=== PATIENT | male | born 1935 ===

== ENCOUNTER 2025-09-17 10:29 | Emergency (ER) | payer MEDICARE, SELFPAY ==
--- NOTE | ~2025-09-17 | XR_ITS ---
EXAMINATION: XR CHEST CLINICAL INFORMATION: cp COMPARISON: None available. TECHNIQUE: 2 views of the chest were obtained. FINDINGS: The cardiomediastinal silhouette is within normal limits. The lungs are well expanded. There is no focal consolidation, edema, or effusion. No pneumothorax. Degeneration in the visualized spine. XR/XR chest 2V IMPRESSION: No radiographic evidence of acute cardiopulmonary process Electronically signed by: John Rodriguez MD 09/17/2025 01:09 PM ONIEL
[2025-09-17 10:34] VITALS: BP 154/85; PULSE 65; RESP 18; TEMP 36.6; O2SAT 98; BMI 24.6
--- NOTE | 2025-09-17 10:38 | ECG_ITS ---
Test Reason : lt arm tinglimg Blood Pressure : */* mmHG Vent. Rate : 56 BPM Atrial Rate : 56 BPM P-R Int : 160 ms QRS Dur : 116 ms QT Int : 434 ms P-R-T Axes : 54 -53 -19 degrees QTcB Int : 418 ms Sinus bradycardia Right bundle branch block Left anterior fascicular block Bifascicular block Abnormal ECG No previous ECGs available Referred By: Alonso Garcia Electronically Signed By: Cody [place]
--- NOTE | 2025-09-17 10:39 | ED.GENADULT ---
[facility] - General Adult General Chief complaint: General Medical Stated complaint: L Hand/ Arm Numbness Time Seen by Provider: 09/17/25 12:02 Source: patient Mode of arrival: ambulatory Limitations: no limitations History of Present Illness ED Provider: Dr. Avalos [facility] narrative: This is a 89-year-old male presented hospital today for evaluation of left arm numbness. Patient stated that he woke up at 02:00 today noticed that his left arm is asleep. Patient stated that this sensation has improved. Patient stated that his pajama was tight around his armpit overnight he had to constantly readjusted. No specific distribution of this paresthesia. Related Data Allergies Allergy/AdvReac Type Severity Reaction Status Date / Time No Known Allergies Allergy Verified 09/17/25 10:38 Review of Systems Review of Systems: Pertinent review of systems as mentioned in HPI. All other system otherwise negative. [facility]LY [facility], LATER [facility] Past Medical History [facility], LAT[facility] Narrative: None Physical Exam ED Exam Exam: General: Pleasant, no distress, interacting appropriately Head: Normacephalic, atraumatic ENT: oral mucosa moist, neck supple, no tracheal deviation Cardiovascular: regular rate, regular rhythm, no murmurs, rubbing, gallops Respiratory: CTAB, no wheeze, rales, rhonchi Extremities: Left upper extremity does have a pulse. Sensation is intact. Neurological: Awake and alert, no facial droop noted, no extremity weakness, no signs of ataxia, speech is clear, vision intact Skin: Warm and dry Psychiatric: Appropriate mood and thoughts Vital Signs: Vital Signs - 24 hr 09/17/25 10:34 09/17/25 14:00 09/17/25 15:51 Temperature 98 F 98.1 F 98.1 F Pulse Rate 65 52 62 Respiratory Rate 18 16 17 Blood Pressure 154/85 H 122/68 120/66 Pulse Oximetry 98 96 97 Oxygen Delivery Method Room Air Room Air Room Air BMI result Body Mass Index 24.6 NIH Stroke Scale Internal: Initial- Upon Arrival Level of Consciousness: Alert Level of Consciousness Questions: Answers both questions correctly Level of Consciousness Commands: Performs both tasks correctly Best Gaze: Normal Visual: No visual loss Facial Palsy: Normal Motor Arm (Right): No drift Motor Arm (Left): No drift Motor Leg (Right): No drift Motor Leg (Left): No drift Limb Ataxia: Absent Sensory: Normal Best Language: No aphasia Dysarthia: Normal Extinction and Inattention: No abnormality Score: 0 Course Course Course Narrative: RME: 89-year-old male presents to the ED for left arm tingling/numbness with/chest tightness since this morning. Patient states tingling numb in getting better. Patient denies any slurred speech, facial droop, paralysis of lower extremities, or loss of vision. NIH score is 0. Labs EKG ordered Medications Administered Discontinued Medications Generic Name Dose Route Start Last Admin Trade Name Tiffanie PRN Reason Stop Dose Admin Aspirin 324 mg 09/17/25 12:13 09/17/25 12:37 Aspirin 81 Mg Tab.Chew PO 09/17/25 12:14 324 mg ONCE ONE Administration Nitroglycerin 0.4 mg 09/17/25 12:13 09/17/25 12:38 Nitroglycerin 0.4 Mg Tab.Subl SUBLINGUAL 09/17/25 12:14 0.4 mg ONCE ONE Administration Medical Decision Making Medical Decision Making [facility] Narrative: 89-year-old male presenting to ER today for evaluation of left arm numbness. Review patient's EKG. Appears to be right bundle branch block. Initial troponin is negative. Second troponin is negative as well. Patient stated that his paresthesia is improving. I suspect this may be secondary to compression of his axilla that is causing the paresthesia down his left arm. Chest x-ray was clear. No significant abnormality on lab work at this time. Patient will be discharged home. I did encourage the patient to follow up with primary care doctor if he has intermittent chest pain for a stress test. Return precautions provided the patient as well for chest pain. Differential Diagnosis Differential Diagnoses: The differential diagnosis associated with the presentation includes Ischemic left limb, ACS, STEMI, paresthesia, radial nerve palsy Lab Data [facility] Lab Attestation statement: I reviewed the patient's lab results. 09/17/25 10:53 09/17/25 10:53 Labs: Lab Results 09/17/25 09/17/25 Range/Units 10:53 13:14 WBC 5.8 (4.8-10.8) X10*3/uL RBC 4.92 (4.60-5.80) X10*6/uL Hgb 12.8 L (14.0-18.0) g/dl Hct 39.9 L (42.0-52.0) % MCV 81.1 (80.0-98.0) fL MCH 26.0 L (27.0-33.0) pg MCHC 32.1 (31.0-36.0) g/dl RDW 15.9 (11.0-16.0) % Plt Count 206 (160-400) X10*3/uL MPV 9.3 L (9.4-12.4) fL Immature Gran % (Auto) 0.3 (0.0-0.4) % Neut % (Auto) 61.4 (45-73) % Lymph % (Auto) 26.6 (20-40) % Burt % (Auto) 9.5 (2-11) % Eos % (Auto) 1.0 (0-4) % Baso % (Auto) 1.2 (0-2) % Lymph # (Auto) 1.5 (1.2-4.9) X10*3/uL Burt # (Auto) 0.6 (0.1-1.2) X10*3/uL Eos # (Auto) 0.1 (0.0-0.4) X10*3/uL Baso # (Auto) 0.1 (0.0-0.2) X10*3/uL Abs Immat Gran (auto) 0.02 (0.00-0.03) X10*3/uL Absolute Neuts (auto) 3.6 (2.0-8.3) x10*3/uL Absolute Nucleated RBC 0.000 (0.0-0.012) X10*3/uL Nucleated RBC % (auto) 0.0 (0.0-0.2) /100WBC PT 12.2 (11.2-13.5) SEC INR 1.0 (0.9-1.1) APTT 32.9 (26.7-34.1) SEC Sodium 138 (135-145) mmol/L Potassium 4.1 (3.3-5.1) mmol/L Chloride 104 (96-108) mmol/L Carbon Dioxide 27 (22-29) mmol/L Anion Gap 11 L (12-20) BUN 18 H (9-16) mg/dL Creatinine 1.00 (0.5-1.4) mg/dL Estim Creat Clear Calc 43.5 Estimated GFR > 60 Random Glucose 92 (60-115) mg/dL Calcium 9.2 (8.4-10.2) mg/dL Total Bilirubin 0.6 (0.0-1.0) mg/dL AST 31 (5-37) U/L ALT 25 (0-40) U/L Alkaline Phosphatase 109 (39-117) U/L Troponin I High Sens 5.3 4.6 (<3.5-35.0) ng/L Total Protein 7.7 (6.5-8.0) g/dL Albumin 4.4 (3.5-5.0) g/dL Independent Interpretation I performed an independent interpretation of an: EKG and Plain X-Ray Radiology Impression Discussion of test interpretation with radiology: I have reviewed the radiologist's reading. Discharge Plan Discharge Clinical Impression: Arm paresthesia, left Patient Disposition: Home, Self-Care Instructions: Paresthesia (ED) Additional Instructions: I suspect your paresthesia of left arm is from your tight pajamas. Wear loose clothing . IF there are any concerns of chest pain it may be a good idea to ask primary care doctor about Stress test. Interventions: ED Discharge Assessment Last Done: 09/17/25 15:51 Discharge Date/Time: 09/17/25 15:51 Print Language: [place]
[2025-09-17 10:57] LABS: MANUAL DIFF FLAG NO
[2025-09-17 10:59] LABS: Hematocrit 39.9 % (42.0-52.0); Hemoglobin 12.8 g/dl (14.0-18.0); Imm Gran Abs Auto 0.02 X10*3/uL (0.00-0.03); Imm Gran Pct Auto 0.3 % (0.0-0.4); Lymphocytes Absolute Auto 1.5 X10*3/uL (1.2-4.9); Mean Corpuscular HGB Conc 32.1 g/dl (31.0-36.0); Mean Corpuscular Hemoglobin 26.0 pg (27.0-33.0); Mean Corpuscular Volume 81.1 fL (80.0-98.0); NRBC Abs Auto 0.000 X10*3/uL (0.0-0.012); NRBC Pct Auto 0.0 /100WBC (0.0-0.2); Platelet Count 206 X10*3/uL (160-400); Red Blood Count 4.92 X10*6/uL (4.60-5.80); White Blood Count 5.8 X10*3/uL (4.8-10.8)
[2025-09-17 11:05] LABS: INTERNATIONAL NORM RATIO 1.0 (0.9-1.1); Prothrombin Time 12.2 SEC (11.2-13.5)
[2025-09-17 11:08] LABS: Partial Thromboplastin Time 32.9 SEC (26.7-34.1)
[2025-09-17 11:14] LABS: Alanine Aminotransferase 25 U/L (0-40); Albumin Level 4.4 g/dL (3.5-5.0); Alkaline Phosphatase 109 U/L (39-117); Anion Gap 11 (12-20); Aspartate Amino Transferase 31 U/L (5-37); Blood Urea Nitrogen 18 mg/dL (9-16); Calcium 9.2 mg/dL (8.4-10.2); Carbon Dioxide 27 mmol/L (22-29); Chloride 104 mmol/L (96-108); Creatinine Clr Calc Pharmacy 43.5; Estimated Glomerular Filt Rate > 60; Potassium 4.1 mmol/L (3.3-5.1); Sodium 138 mmol/L (135-145); Total Protein 7.7 g/dL (6.5-8.0)
[2025-09-17 11:18] LABS: Troponin-I High Sensitivity 5.3 ng/L (<3.5-35.0)
--- NOTE | 2025-09-17 12:29 | ECG_ITS ---
Test Reason : repeat (CP) Blood Pressure : */* mmHG Vent. Rate : 56 BPM Atrial Rate : 56 BPM P-R Int : 144 ms QRS Dur : 116 ms QT Int : 454 ms P-R-T Axes : 66 -47 13 degrees QTcB Int : 438 ms Sinus bradycardia Right bundle branch block Left anterior fascicular block Bifascicular block Abnormal ECG When compared with ECG of 17-Sep-2025 10:46, No significant change was found Referred By: Lyudmila Avalos Electronically Signed By: Cody [place]
[2025-09-17 13:44] LABS: Troponin-I High Sensitivity 4.6 ng/L (<3.5-35.0)
[2025-09-17 14:00] VITALS: BP 122/68; PULSE 52; RESP 16; TEMP 36.7; O2SAT 96
--- OUTSIDE RECORDS SUMMARY | 2025-09-17 15:00 | XMS_ITS | Clinical Summary ---
Author Organization [facility] Address [address] [address] Phone Care Team Providers Care Director Client Services Name Role Phone Fabián Castanon MD Primary Care Provide r Allergies No known active allergies Medications amLODIPine (NORVASC) 10 MG tablet Take 10 mg by mouth. 10/31/2016 Active aspirin 81 MG EC tablet Take by mouth. 03/06/2013 Active citalopram (CELEXA) 10 MG tablet Take 1 tablet by mouth daily 10/31/2016 Active cyanocobalamin, vitamin B-12, 500 MCG tablet Take 500 mcg by mouth. 05/14/2015 Active diclofenac sodium (VOLTAREN) 0.1 % ophthalmic solution Instill 1 drop into affected eye(s) four times daily Start 1 day before and continue after surgery 01/22/2017 Active fluticasone propionate (FLONASE) 50 mcg/actuation nasal spray Apply 1-2 sprays to each nostril daily ; dispense OTC if lowest cost for patient 11/26/2015 Active loratadine (CLARITIN) 10 mg tablet Take by mouth. 03/04/2013 Active ofloxacin (OCUFLOX) 0.3 % ophthalmic solution Instill 1 drop into affected eye(s) four times daily start 1 day before and continue after surgery 01/22/2017 Active prednisoLONE acetate (PRED FORTE) 1 % ophthalmic suspension Apply 1 drop to affected eye(s) four times daily After surgery 01/22/2017 Active sildenafil (REVATIO) 20 mg tablet Take up to 5 tablets, or as directed, one hour before sex. Best taken on empty stomach or 2 hours after meal. 10/28/2015 Active tamsulosin (FLOMAX) 0.4 mg Cap Take 0.4 mg by mouth. 10/31/2016 Active ELIQUIS 2.5 mg 04/21/2022 Acti ve neomycin-polymy azar B-dexamethasone (MAXITROL) 3.5 mg/g-10,000 unit/g-0.1 % Oint 06/18/2022 Active Active Problems Problem Noted Date Diagnosed Date Basal cell carcinoma (BCC) of right upper extrem ity 06/27/2022 Overview (06/27/2022): right antecubital fossa FIBROEPITHELIOMA OF PINKUS, THE EXAMINED INKED MARGINS ARE NEGATIVE. Hypertensive disorder 03/18/2019 BPH (benign prostatic hyperplasia) 03/18/2019 Major depressive disorder 03/18/2019 OA (osteoarthritis) 03/18/2019 Spinal stenosis 03/18/2019 Social History Tobacco Use Types Packs/Day Years Used Date Smoking Tobacco: Never Smokeless Tobacco: Never Alcohol Use Standard Drinks/Week Comments Yes 1 (1 standard drink = 0.6 oz pur e alcohol) once a week Education Answer Date Recorded Are you interested in more education? Not on adam e 03/18/2023 Are you concerned about learning? Not on file 03/18/2023 No 03/18/2023 No 03/18/2023 Digital Access Answer Date Recorded No 04/09/2023 No 04/09/2023 No 04/09/2023 Reliable internet access at home? Not on file 04/09/2023 Device with a working camera? Not on file Sex and Gender Information Value Date Recorded Sex Assigned at Not on file Legal Sex Male 5:52 PM EST Gender Identity Not on file Sexual Orientation Not on file Last Filed Vital Signs Vital Sign Reading Time Taken Comments Blood Pressure 119/69 03/18/2019 9:47 AM EDT Pulse 58 03/18/2019 9:47 AM EDT Temperature 36.2 C (97.2 F) 03/18/2019 9:30 AM EDT Respiratory Rate 19 03/18/2019 9:47 AM EDT Oxygen Saturation 97% 03/18/2019 9:30 AM EDT Inhaled Oxygen Concentration - - Weight 67.6 kg (149 lb) 03/18/2019 8:34 AM EDT Height 167.6 cm (5' 6 ) 03/18/2019 8:34 AM EDT Body Mass Index 24.05 03/18/2019 8:34 AM EDT Plan of Treatment Health Maintenance Due Date Last Done Comments DEPRESSION SCREENING 1948 RSV VACCINE (1 - 1-dose 75+ series) 2011 Adult Td,Tdap Booster 07/27/2022 07/27/2012, 008 CREATININE LEVEL 06/01/2023 06/01/2022, 02/14/2019 INFLUENZA VACCINE (#1) 2025 , 07/28/2020, 08/26/2019, Additional history exists COVID-19 VACCINE (2024- season) 2025 03/16/2022, 08/30/2021, 12/30/2020, Additional history exists PNEUMOCOCCAL VACCINES (50+ years) Completed 12/08/2017, 08/12/2016, 09/18/2002 ZOSTER VACCINES Completed 06/01/2022, 04/14, 10/23/2012 HEPATITIS A VACCINES Aged Out No long er eligible based on patient's age to complete this topic HIB VACCINES Aged Out No longer eligi ble based on patient's age to complete this topic MENINGOCOCCAL VACCINES (ACWY) Aged Out No longer eligible based on patient's age to complete this topic MENINGOCOCCAL VACCINES (B) Aged Out N o longer eligible based on patient's age to complete this topic Medical Devices Implanted Type Area Belt Loop Cutter Device Identifier Shelf Expiration Date Model / Serial / Lot Iol Tecnis Zcb00 22.5d - [id number] Implanted:Qty: 1 on 01/30/2017 by Sandrine Ann MD at [facility] 05/06/2020 / [id number] / Lens Intraocular Tecnis Zcb00 22.0d - [id number] Implanted:Qty: 1 on 03/18/2019 by Sandrine Ann MD at [facility] A M O SALES 06/13/2022 ZCB00 22.0D / [id number] / [place] [address] [facility] Member Subscriber Plan / Payer (Ef fective 2001-Present) Name:Lencho Faustin Relation to Subscriber:Spouse Name:CHALO FAUSTIN Date of :1935 (Home) Address: [address] [place] Payer ID:[id number] (NAIC) Type:O Address: [facility] [id number] [place] [address] [facility] POS Member Subscriber Plan / Payer (Ef fective 2001-Present) Name:Lencho Faustin Relation to Subscriber:Spouse Name:ROXIECHAVOCHALO Date of :1935 (Home) Address: [address] [place] Payer ID:[id number] (NAIC) Type:O Address: [id number] MEDICARE REPLACEMENT [place] [id number] [facility] POS Member Subscriber Plan / Payer (Ef fective 2001-Present) Name:Lencho Faustin Relation to Subscriber:Spouse Name:CHALO FAUSTIN Date of :1935 (Home) Address: [address] [place], [place] [address] [address] Payer ID:[id number] (NAIC) Type:O Address: [phone] MEDICARE REPLACEMENT [place] [id number] [facility] POS Member Subscriber Plan / Payer (Ef fective 2001-Present) Name:Lencho Faustin Relation to Subscriber:Spouse Name:CHALO FAUSTIN Date of :1935 (Home) Address: [place] [address] Payer ID:[id number] (NAIC) Type:O Address: [address] MEDICARE REPLACEMENT [facility] POS Member Subscriber Plan / Payer (Ef fective 2001-Present) Name:Lencho Faustin Relation to Subscriber:Spouse Name:CHALO FAUSTIN Date of :1935 (Home) Address: [place] [address] Payer ID:[id number] (NAIC) Type:O Address: [address] [place] [address] [facility] HMO POS [facility] [place]ARE [place] [address] [facility] HMO POS Member Subscriber Plan / Payer (Ef fective 2001-Present) Name:Lencho Faustin Relation to Subscriber:Spouse Name:CHALO FAUSTIN Date of :1935 (Home) Address: [place] [address] Payer ID:[id number] (NAIC) Type:HMO Address: [address] MEDICARE REPLACEMENT [facility] POS Member Subscriber Plan / Payer (Ef fective 2001-Present) Name:Lencho Faustin Relation to Subscriber:Spouse Name:CHALO FAUSTIN Date of :1935 (Home) Address: [place] [address] Payer ID:[id number] (NAIC) Type:O Address: [phone] MEDICARE REPLACEMENT [place] [phone] [facility] POS Member Subscriber Plan / Payer (Ef fective 2001-Present) Name:Lencho Faustin Relation to Subscriber:Spouse Name:CHALO FAUSTIN Date of :1935 (Home) Address: [place] [address] Payer ID:[id number] (NAIC) Type:O Address: [address] [place] [address] [facility] POS Member Subscriber Plan / Payer (Ef fective 2001-Present) Name:Lencho Faustin Relation to Subscriber:Spouse Name:CHALO FAUSTIN Date of :1935 (Home) Address: [place] [address] Payer ID:[id number] (NAIC) Type:O Address: [phone] MEDICARE REPLACEMENT [place] [phone] Advance Directives For more information, please contact: [phone] (9AM - 5PM [facility], Monday-Monday) * Full Code (Presumed) (Latest Code Status on File) Date Activated Date Inactivated Comments 03/18/2019 8:35 AM 03/19/2019 10:19 AM * Full Code (Presumed) Date Activated Date Inactivated Comments 01/30/2017 8:03 AM 01/30/2017 11:32 AM Care Teams Director Client Services Relationship Specialty Start Date End Date Fabián Castanon MD [address] [place] [address] [email or web address] PCP - General Internal Medicine 03/06/19 Additional Source Comments The information contained in this document represents components of the legal health record. It is not the complete legal health record.[facility]
--- OUTSIDE RECORDS SUMMARY | 2025-09-17 15:00 | XMS_ITS | Encounter Summary ---
Author Organization [facility] Address [address] [facility] [address] [place] [address] Phone Care Team Providers Care Flower Maker Name Role Phone Fabián Castanon MD Primary Care Provide r Encounter Details Date Type Department Care Team (Late st Contact Info) Description 03/18/2019 Procedure Pass [facility] DEPT [address] [place] [id number] Social History Tobacco Use Types Packs/Day Years Used Date Smoking Tobacco: Never Smokeless Tobacco: Never Alcohol Use Standard Drinks/Week Comments Yes 1 (1 standard drink = 0.6 oz pur e alcohol) once a week Sex and Gender Information Value Date Recorded Sex Assigned at Not on file Legal Sex Male 5:52 PM EST Gender Identity Not on file Sexual Orientation Not on file documented as of this encounter Plan of Treatment Not on file documented as of this encounter Visit Diagnoses Not on filedocumented in this encounter Care Teams Flower Maker Relationship Specialty Start Date End Date Fabián Castanon MD [address] [place] [address] [email or web address] PCP - General Internal Medicine 03/06/19 documented as of this encounter Additional Source Comments The information contained in this document represents components of the legal health record. It is not the complete legal health record.[facility]
--- OUTSIDE RECORDS SUMMARY | 2025-09-17 15:00 | XMS_ITS | Encounter Summary ---
Author Organization [facility] Address [address] [place] [address] Phone Care Team Providers Care Coverage Specialist Name Role Phone Jb Ruiz MD Primary Care Provider [phone] Fabián Castanon MD Primary Care Provide r Encounter Details Date Type Department Care Team (Late st Contact Info) Description 01/30/2017 Procedure Pass [facility] DEPT [address] [place] [id number] Social History Tobacco Use Types Packs/Day Years Used Date Smoking Tobacco: Never Alcohol Use Standard Drinks/Week Comments [...] on filedocumented in this encounter Care Teams Coverage Specialist Relationship Specialty Start Date End Date Jb Ruiz MD [address] [place] [id number] PCP - General Internal Medicine 01/13/17 03/05/19 Fabián Castanon MD [address] [place] [address] [email or web address] PCP - General Internal Medicine 03/06/19 documented as of this encounter Additional Source Comments The information contained in this document represents components of the legal health record. It is not the complete legal health record.[facility]
[2025-09-17 15:51] VITALS: BP 120/66; PULSE 62; RESP 17; TEMP 36.7; O2SAT 97
== END 2025-09-17 15:51 | disposition home or self-care (01) ==
PROVIDERS: Physician Assistant; Emergency Provider Student in an Organized Health Care Education/Training Program
DX: R20.0 Anesthesia of skin (principal); M79.642 Pain in left hand; R07.9 Chest pain, unspecified; R00.1 Bradycardia, unspecified; I45.2 Bifascicular block
CPT/HCPCS: 36415; 71046; 80053; 84484; 85025; 85610; 85730; 93005; 99283; 99284

== ENCOUNTER → 2025-09-17 10:38 | Outpatient (BNV) | payer MEDICARE, SELFPAY | PROVIDERS: Emergency Provider Student in an Organized Health Care Education/Training Program; Visit Provider Internal Medicine Cardiovascular Disease | DX: I45.2 Bifascicular block (principal); R00.0 Tachycardia, unspecified | CPT/HCPCS: 93010 ==

== ENCOUNTER → 2025-09-17 12:41 | Outpatient (BNV) | payer MEDICARE, SELFPAY | PROVIDERS: Emergency Provider Student in an Organized Health Care Education/Training Program; Visit Provider Radiology Diagnostic Ultrasound | DX: R07.9 Chest pain, unspecified (principal) | CPT/HCPCS: 71046 ==